=== PATIENT | male | born 1945 | race Caucasian/White ===

== ENCOUNTER 2019-02-09 15:07 | Inpatient (IN) | payer OTHER, MEDICARE ==
[2019-02-09 15:24] VITALS: BMI 25.8
[2019-02-09] MEDS ORDERED: ASPIRIN 81 MG CHEWABLE TABLETS PO ONE (15:31)
--- NOTE | 2019-02-09 15:32 | PDOC ---
History of Present Illness - General Chief Complaint: Chest Pain Stated Complaint: CHEST PAIN Time Seen by Provider: 02/09/19 15:29 - History of Present Illness Initial Comments: 02/09/19 15:43 The patient is a 73 year old male with a history of HTN, HLD who presents for evaluation of chest pain and SOB. The patient reports a 1 day history of SOB with substernal chest pain radiating to the back that has been persistent prompting his presentation to the ED for further evaluation. He denies prior similar symptoms in the past. He initially presented to his PCP office where an EKG was performed and the patient was referred to the ED for concerning EKG findings. He otherwise denies fevers, chills, nausea, vomiting, abdominal pain , or changes with urination or bowel movements. Past History - Past Medical History Allergies/Adverse Reactions: Allergies Allergy/AdvReac Type Severity Reaction Status Date / Time No Known Allergies Allergy Verified 02/09/19 15:25 Home Medications: Ambulatory Orders Aspirin [Ecotrin] 81 mg PO DAILY 02/09/16 Metoprolol Succinate [Toprol Xl -] 50 mg PO DAILY 02/09/16 Mirtazapine [Remeron -] 15 mg PO DAILY 02/09/16 Multivit-Min/FA/Lycopen/Lutein [Centrum Silver Tablet] 1 each PO DAILY 02/09/16 Quetiapine Fumarate [Seroquel -] 25 mg PO DAILY 02/09/16 Tamsulosin HCl [Flomax] 0.4 mg PO DAILY 02/09/16 Venlafaxine HCl [Effexor -] 75 mg PO DAILY 02/09/16 Amlodipine Besylate [Norvasc -] 2.5 mg PO DAILY 02/11/16 Quetiapine Fumarate [Seroquel] 100 tab PO HS 02/11/16 Anemia: No Asthma: No Cancer: No Cardiac Disorders: Yes (?murmer) CVA: No COPD: No CHF: No Dementia: No Diabetes: No GI Disorders: No Disorders: No HTN: Yes Hypercholesterolemia: No Liver Disease: No Seizures: No Thyroid Disease: No - Surgical History Abdominal Surgery: Yes (colon resection with reversal of colostomy) Appendectomy: No Cardiac Surgery: No Cholecystectomy: No Lung Surgery: No Orthopedic Surgery: No - Immunization History Immunization Up to Date: Yes - Psycho Social/Smoking Cessation Hx Smoking History: Former smoker Have you smoked in the past 12 months: No Information on smoking cessation initiated: No Hx Alcohol Use: Yes Drug/Substance Use Hx: No Substance Use Type: Alcohol Review of Systems - Review of Systems Comments:: 02/09/19 15:45 Constitutional: No fevers, chills, fatigue, malaise HEENT: No Rhinorrhea, nasal congestion, visual changes Cardiovascular: Chest pain. No syncope, palpitations, lightheadedness Respiratory: SOB. No Cough, Hemoptysis, Gastrointestinal: No Abdominal pain, Nausea, Vomiting, Constipation, Diarrhea, Melena Genitourinary: No Dysuria, Frequency, Urgency, Hesitancy, Hematuria, Flank pain Musculoskeletal: No Myalgia, arthralgia Skin: No rashes, itching, bruising, pallor Neurologic: No Headache, Dizziness, Numbness, Weakness, or Tingling Psychiatric: No Hallucinations. No SI or HI *Physical Exam - Vital Signs Last Vital Signs Temp Pulse Resp BP Pulse Ox 98.2 F 90 16 134/57 L 99 02/09/19 15:21 02/09/19 15:21 02/09/19 15:21 02/09/19 15:21 02/09/19 15:21 - Physical Exam 02/09/19 15:46 General Appearance: Nourished. No Apparent Distress HEENT: No Pharyngeal Erythema, Tonsillar Exudate, Tonsillar Erythema Neck: No Cervical Lymphadenopathy Respiratory/Chest: Lungs Clear, Normal Breath Sounds. No Crackles, Rales, Rhonchi, Wheezing Cardiovascular: Regular Rhythm, Regular Rate. No Murmur, Gallops, Rubs Gastrointestinal/Abdominal: Normal Bowel Sounds, Soft. No Guarding, Rebound, Tenderness Musculoskeletal: No CVA Tenderness Extremity: Normal Capillary Refill Integumentary: Normal Color, Dry, Warm Neurologic: Fully Oriented, Alert, Normal Mood/Affect, Normal Response, Heart Score/ECG Review #1 ECG reviewed & interpreted by me at: 15:46 02/09/19 15:46 HR 94 ID [address] elevations in leads aVR, V1, V2, V3 ST depressions in leads V4, V5, V6, I, II, aVL ED Treatment Course - LABORATORY CBC & Chemistry Diagram: 02/09/19 15:33 02/09/19 15:33 - RADIOLOGY Radiology Studies Ordered: Category Date Time Status CHEST X-RAY PORTABLE* [RAD] Stat Radiology 02/09/19 15:28 Ordered Medical Decision Making - Medical Decision Making 02/09/19 15:47 The patient is a 73 year old male with a history of HTN, HLD who presents for evaluation of chest pain and SOB. Given the patient's history, physical exam, and EKG we are concerned that the patient's symptoms may be due to a STEMI. We will obtain a cbc, cmp, coags, troponin, chest plain film to evaluate further. We will discuss the case with [facility] laboratory technologist regarding possible transfer. We will treat with aspirin, brilinta, heparin as well and continue to monitor and reassess while here in the ED. 02/09/19 16:27 We discussed the case with [facility] laboratory technologist who do not believe the patient requires emergent intervention at this time as the patient likely had an infarct 1 day ago and his current symptoms are due to NSTEMI. Troponin is elevated to 14. Chest plain film was initially unremarkable. The patient was evaluated by Dr. Ivey with cardiology. The patient was placed on a heparin drip with standing SL nitro. 02/09/19 19:34 The patient reported worsening symptoms with shortness of breath. He was observed to be diaphoretic on exam with bilaterally crackles concerning for CHF and flash pulmonary edema. We treated with nitro paste and lasix with improvement in the patient's symptoms. ICU team was consulted for possible ICU admission. Discharge - Discharge Information Problems reviewed: Yes Clinical Impression/Diagnosis: NSTEMI (non-ST elevated myocardial infarction) Chest pain Qualifiers: Chest pain type: unspecified Qualified Code(s): R07.9 - Chest pain, unspecified Condition: Guarded - Follow up/Referral - Patient Discharge Instructions - Post Discharge Activity
[2019-02-09] MEDS ORDERED: TICAGRELOR 90 MG TABLET PO ONE ×2 (15:35→15:44)
[2019-02-09] MEDS ORDERED: HEPARIN NA (PORCINE) 5,000 UNITS/ML 1ML VIAL IVPUSH ONE (15:35)
[2019-02-09] MEDS ORDERED: ASPIRIN COATED 81 MG TABLET.EC ONE (15:44)
[2019-02-09] MEDS ORDERED: HEPARIN NA (PORCINE) 5,000 UNITS/ML 1ML VIAL ONE (15:45)
[2019-02-09] MEDS: NITROGLYCERIN SUBLINGUAL 1/150 0.4 MG TAB SL PRN ×3 (15:59→21:37)
[2019-02-09] MEDS ORDERED: NITROGLYCERIN SUBLINGUAL 1/150 0.4 MG TAB ONE (16:01)
[2019-02-09 16:02] LABS: BASO % 0.8 % (0-2.0); EOS % 0.5 % (0-4.5); HEMATOCRIT 32.2 % (35.4-49); LYMPH % 10.7 % (8-40); MCH 32.5 pg (25.7-33.7); MCHC 34.1 g/dl (32.0-35.9); MEAN CELL VOLUME 95.5 fl (80-96); MEAN PLT VOLUME 10.5 fl (7.5-11.1); MONO % 7.8 % (3.8-10.2); NEUT % 80.2 % (42.8-82.8); PLATELET COUNT 263 K/MM3 (134-434); RBC 3.37 M/mm3 (4.00-5.60); WHITE BLOOD COUNT 10.7 K/mm3 (4.0-10.0)
[2019-02-09 16:19] LABS: ACTIVATED PTT 29.8 SECONDS (25.2-36.5)
[2019-02-09 16:43] LABS: ALBUMIN 3.2 g/dl (3.4-5.0); BILIRUBIN,TOTAL 0.4 mg/dL (0.2-1); BLOOD UREA NITROGEN 21.5 mg/dL (7-18); CALCIUM 8.6 mg/dL (8.5-10.1); CREATININE 1.2 mg/dL (0.55-1.3); POTASSIUM 4.8 mmol/L (3.5-5.1); TOT PROT 6.4 g/dl (6.4-8.2)
--- NOTE | 2019-02-09 16:45 | PDOC ---
Attending Attestation - Resident Resident Name: Anthony Jordan - ED Attending Attestation I have performed the following: I have examined & evaluated the patient, The case was reviewed & discussed with the resident, I agree w/resident's findings & plan, Exceptions are as noted - HPI HPI: 02/09/19 17:06 73 years old past medical history significant for hypertension hyperlipidemia presents to the ED with chest pain shortness of breath started approximately 2 AM last night substernal radiating to shoulder and back today presented to his PCP office were preceded an EKG was performed which demonstrated concerning EKG findings patient sent to the ED Upon arrival to the ED his pain was 2 out of 10 his EKG demonstrated Q waves in leads aVR, V1, V2 with ST elevations and reciprocal ST depressions laterally - Physicial Exam PE: 02/09/19 17:06 Vitals: Triage Vital signs reviewed General Appearance: No acute distress, well nourished well developed, Head: Atraumatic, Cardiac: Regular rate and rhythym, no murmurs, no rubs, no gallops, Lungs: Clear to auscultation bilateral, good air movement bilaterally, Abdomen: Soft, non distended, normal bowel sounds, non tender to palpation Extremities: Full range of motion to all extremities, no cyanosis, clubbing, or edema Skin: Warm and dry, no rashes or lesions, no rash, no petechiae Psych: Normal mood, normal affect - Critical Care Time Total Critical Care Time: 65 Critical Care Statement: The care of this patient involved high complexity decision making to prevent further life threatening deterioration of the patient 's condition and/or to evaluate & treat vital organ system(s) failure or risk of failure. - Medical Decision Making 02/09/19 17:06 Case discussed with [facility] to discuss possible interventional transfer EKG reviewed with patient does not meet criteria for STEMI transfer. Recommends nitroglycerin Reevaluation status post 2 nitroglycerin patient is completely chest pain-free Case discussed with patient's practice support specialist Dr. Rey Requested Dr. Rosario cardiology for consultation Dr. Taylor at bedside patient has been given full dose aspirin Brilinta IV heparin will place patient on heparin drip and admit to hospital for non-ST elevation HI. 02/09/19 18:45 Reevaluation bedside echo demonstrates mild heart failure with bilateral pleural effusions rediscussed with cardiology will treat with morphine IV Lasix and Nitropaste Reevaluation 630 patient chest pain-free patient to be admitted to the ICU for definitive management.
[2019-02-09] MEDS ORDERED: HEPARIN NA (PORCINE) 5,000 UNITS/ML 1ML VIAL IVPUSH PRN ×2 (16:56)
--- NOTE | 2019-02-09 16:59 | CON.CARD ---
Consult Consult Specialty:: Cardiology Referred by:: Miguelito Roa MD Reason for Consultation:: Chest pain - History of Present Illness Chief Complaint: Chest pain History of Present Illness: The patient is a 73 year old male with a history of HTN, HLD who presents for evaluation of chest pain and SOB starting yesterday 2 AM. The patient reports a 1 day history of SOB with substernal chest pressure/burning radiating to the back and bilateral shoulders that had persisted prompting his presentation to the ED for further evaluation. He denies prior similar symptoms in the past. He initially presented to his PCP office where an EKG was performed and the patient was referred to the ED for concerning EKG findings. He otherwise palpitations, near or true syncope, orthopnea, PND or LE edema. Troponins elevated 14.2, limited echo shows severe LV dsyfunction, lung US shows bilateral pleural effusions. sees Dr. Hamilton in office. - History Source History Provided By: Patient Limitations to Obtaining History: No Limitations - Alcohol/Substance Use Hx Alcohol Use: Yes - Smoking History Smoking history: Former smoker Have you smoked in the past 12 months: No Home Medications - Allergies Allergies/Adverse Reactions: Allergies Allergy/AdvReac Type Severity Reaction Status Date / Time No Known Allergies Allergy Verified 02/09/19 15:25 - Home Medications Home Medications: Ambulatory Orders Aspirin [Ecotrin] 81 mg PO DAILY 02/09/16 Metoprolol Succinate [Toprol Xl -] 50 mg PO DAILY 02/09/16 Mirtazapine [Remeron -] 15 mg PO DAILY 02/09/16 Multivit-Min/FA/Lycopen/Lutein [Centrum Silver Tablet] 1 each PO DAILY 02/09/16 Quetiapine Fumarate [Seroquel -] 25 mg PO DAILY 02/09/16 Tamsulosin HCl [Flomax] 0.4 mg PO DAILY 02/09/16 Venlafaxine HCl [Effexor -] 75 mg PO DAILY 02/09/16 Amlodipine Besylate [Norvasc -] 2.5 mg PO DAILY 02/11/16 Quetiapine Fumarate [Seroquel] 100 tab PO HS 02/11/16 Review of Systems - Review of Systems Cardiovascular: reports: Chest Pain, Shortness of Breath Vital Signs: Vital Signs Temperature 98.2 F 02/09/19 15:21 Pulse Rate 90 02/09/19 15:21 Respiratory Rate 16 02/09/19 15:21 Blood Pressure 134/57 L 02/09/19 15:21 O2 Sat by Pulse Oximetry (%) 99 02/09/19 15:21 Constitutional: Yes: No Distress, Calm Neck: Yes: Supple Respiratory: Yes: Regular, CTA Bilaterally Gastrointestinal: Yes: Normal Bowel Sounds, Soft Cardiovascular: Yes: Regular Rate and Rhythm JVD: No Carotid Bruit: No Heart Sounds: Yes: S1, S2 Murmur: Yes: Systolic Murmur, Grade 2 Edema: No - Other Data Labs, Other Data: CBC, BMP 02/09/19 15:33 02/09/19 15:33 Troponin, BNP 02/09/19 15:33 Troponin I 14.20 H* Troponin, BNP 02/09/19 15:33 Troponin I 14.20 H* NSR @ 94 LVH with repol abnl Imaging - Results Chest X-ray: Report Reviewed (Cardiomegaly with small effusion) Problem List - Problems (1) NSTEMI (non-ST elevated myocardial infarction) Code(s): I21.4 - NON-ST ELEVATION (NSTEMI) MYOCARDIAL INFARCTION (2) Hypertensive heart disease Code(s): I11.9 - HYPERTENSIVE HEART DISEASE WITHOUT HEART FAILURE Qualifiers: Heart failure presence: without heart failure Qualified Code(s): I11.9 - Hypertensive heart disease without heart failure (3) Acute systolic CHF (congestive heart failure) Code(s): I50.21 - ACUTE SYSTOLIC (CONGESTIVE) HEART FAILURE Assessment/Plan 1. CAD NSTEMI 2. Hypertensive heart disease 3. Hyperlipidemia 4. Acute systolic heart failure with pleural effusions P: 1. Cycle cardiac enzymes to document peak 2. Heparin, Toprol XL 50 qd, Norvasc 2.5 qd, Lipitor 80 qd, ASA 81 qd, Brilinta 90 bid, add MONIKA-I/ARB as hemodynamics tolerate 3. Echo to assess ventricular and valve fxn, TSH, lipid panel, Ha1c, NT-BNP 4. IV diuresis with monitor diuretic response, renal fxn and electrolytes 5. R&LHC +/- PCI once euvolemic 6. Thank you for consultative opportunity, f/u with Dr. Alton Hamilton upon d/c
[2019-02-09] MEDS ORDERED: HEPARIN INFUSION - 25,000 UNITS/500 ML INFUS.BAG IVPB ONE (17:08)
[2019-02-09] MEDS: HEPARIN - 25,000 UNIT in SODIUM CHLORIDE 495 ML IV SCH (17:16)
[2019-02-09] MEDS ORDERED: NITROGLYCERIN 2% OINTMENT - 1GM PACKET TD ONE ×2 (17:41→17:42)
[2019-02-09] MEDS ORDERED: FUROSEMIDE 40 MG/4 ML INJECTABLE VIAL IVPUSH ONE (17:41)
[2019-02-09] MEDS ORDERED: morphine CARPU-JECT 2 MG/1 ML DISP.SYRIN IVPUSH ONE (17:41)
[2019-02-09] MEDS ORDERED: MORPHINE SULFATE 2 MG/ML VIAL ONE (17:43)
[2019-02-09] MEDS ORDERED: FUROSEMIDE 40 MG/4 ML INJECTABLE VIAL ONE (17:43)
[2019-02-09 18:36] LABS: PROTHROMBIN TIME (PATIENT) 11.8 SEC (9.7-13.0)
--- NOTE | 2019-02-09 18:57 | CONSULT ---
Consultation: REQUESTING PROVIDER: CONSULT REQUEST: We have been asked to medically evaluate this patient for ICU admission due to NSTEMI and possible pulmonary edema. HISTORY OF PRESENT ILLNESS: 73 y/o/m with PMHx of HTN, HLD who presented to ED for chest pain and SOB. He has been having SOB and substernal chest pain that radiates to his upper back and right shoulder. He states he has had similar pain in the past when he had indigestion. Patient was referred to the ED by his PCP due to concerning EKG findings. He denies any sick contacts, N/V/D, abd pain, headache, dysuria. Patient found to have NSTEMI in ED with elevated trop. ED discussed with [facility] micro lab analyst who did not believe patient required emergent intervention as patient likely had an infarct 1 day ago. Patient was placed on a heparin drip with standing SL nitro. Patient reported worsening symptoms with SOB as per ED and ED staff concerned for flash pulmonary edema. Treated patient with nitro paste and lasix with improvement. Patient admitted to ICU for closer monitoring. REVIEW OF SYSTEMS: As per HPI PHYSICAL EXAMINATION Vital Signs - 24 hr 02/09/19 15:21 Temperature 98.2 F Pulse Rate 90 Respiratory 16 Rate Blood Pressure 134/57 L O2 Sat by Pulse 99 Oximetry (%) GENERAL: Awake, alert, and fully oriented, in no acute distress. HEAD: Normal with no signs of trauma. EYES: PERRL, EOMI, no scleral icterus EARS, NOSE, THROAT: dry mucous membranes NECK: trachea midline, supple LUNGS: Breath sounds equal, clear to auscultation bilaterally. No wheezes, and no crackles. No accessory muscle use. HEART: Tachycardic ABDOMEN: Soft, nontender, not distended, normoactive bowel sounds, no guarding EXTREMITIES: 2+ pulses, warm, well-perfused. No calf tenderness. trace edema NEUROLOGICAL: Normal speech. gait not observed PSYCHIATRIC: Cooperative. Good eye contact. Appropriate mood and affect. SKIN: Warm, dry Laboratory Results - last 24 hr 02/09/19 02/09/19 02/09/19 15:33 15:33 15:33 WBC 10.7 H RBC 3.37 L Hgb 11.0 L Hct 32.2 L MCV 95.5 MCH 32.5 MCHC 34.1 RDW 13.0 Plt Count 263 MPV 10.5 D Absolute Neuts (auto) 8.6 H Neutrophils % 80.2 Lymphocytes % 10.7 Monocytes % 7.8 Eosinophils % 0.5 Basophils % 0.8 Nucleated RBC % 0 PT with INR 11.80 INR 1.00 PTT (Actin FS) 29.8 Sodium 132 L Potassium 4.8 Chloride 100 Carbon Dioxide 26 Anion Gap 6 L BUN 21.5 H Creatinine 1.2 Est GFR (CKD-EPI)AfAm 68.15 Est GFR (CKD-EPI)NonAf 58.80 Random Glucose 104 Calcium 8.6 Total Bilirubin 0.4 AST 115 H ALT 27 Alkaline Phosphatase 114 Creatine Kinase 657 H Creatine Kinase Index 10.6 H CK-MB (CK-2) 69.8 H Troponin I 14.20 H* Total Protein 6.4 Albumin 3.2 L Active Medications Generic Name Dose Route Start Last Admin Trade Name Freq PRN Reason Stop Dose Admin Amlodipine Besylate 2.5 mg 02/10/19 10:00 Norvasc - PO DAILY [facility] Aspirin 81 mg 02/10/19 10:00 Asa - PO DAILY [facility] Atorvastatin Calcium 80 mg 02/09/19 22:00 Lipitor - PO HS [facility] Heparin Sodium (Porcine) 1,000 unit 02/09/19 16:56 Heparin - IVPUSH PRN PRN Heparin Heparin Sodium (Porcine) 5,000 unit 02/09/19 16:56 Heparin - IVPUSH PRN PRN Heparin Heparin Sodium (Porcine) 25, 500 mls @ 20 mls/hr 02/09/19 17:00 02/09/19 17: 16 000 unit/ Sodium Chloride IV 1,000 unit/hr TITR JOSE A 20 mls/hr Administration Protocol 1,000 UNIT/HR Metoprolol Succinate 50 mg 02/09/19 17:15 Toprol Xl - PO DAILY [facility] Nitroglycerin 0.4 mg 02/09/19 15:51 02/09/19 16:27 Nitrostat - SL 0.4 mg Q5M PRN Administration FOR CHEST PAIN Ticagrelor 90 mg 02/09/19 22:00 Brilinta - PO BID [facility] ASSESSMENT/PLAN: 73 y/o/m with PMHx of HTN, HLD who presented to ED for chest pain and SOB. Found to have an NSTEMI with elevated trop in ED. Per Cardio patient did not need urgent intervention. Admitted to ICU for NSTEMI and closer monitoring. NSTEMI Chest Pain Elevated Troponins HTN HLD - no emergent need for cath as per Cardio - Trend troponins - Heparin drip - Echo to evaluate cardiac function - Nitroglycerin and Morphine as needed - maintain MAP >65 - Hemodynamically stable - Patient comfortable on room air - Cardio recs appreciated - Continue home psych meds - Primary team considering transfer to tertiary center - CXR without acute pathology - Repeat EKG in AM #Disposition - ICU monitoring Visit type - Emergency Visit Emergency Visit: Yes ED Registration Date: 02/09/19 Care time: The patient presented to the Emergency Department on the above date and was hospitalized for further evaluation of their emergent condition. - New Patient This patient is new to me today: Yes Date on this admission: 02/10/19 - Critical Care Critical Care patient: Yes Total Critical Care Time (in minutes): 36 Critical Care Statement: The care of this patient involved high complexity decision making to prevent further life threatening deterioration of the patient 's condition and/or to evaluate & treat vital organ system(s) failure or risk of failure. ATTENDING PHYSICIAN STATEMENT I saw and evaluated the patient. I reviewed the resident's note and discussed the case with the resident. I agree with the resident's findings and plan as documented. SUBJECTIVE: OBJECTIVE: ASSESSMENT AND PLAN:
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
--- NOTE | 2019-02-09 19:14 | PN ---
Teaching Attending Note Name of Resident: Wes Christensen ATTENDING PHYSICIAN STATEMENT I saw and evaluated the patient. I reviewed the resident's note and discussed the case with the resident. I agree with the resident's findings and plan as documented. 73 year old M with history of CAD, HTN, HLD, depression, anxiety, BPH, presents to the ED with epigastric pain radiating to his substernal chest area. Patient endorses pain started 4-5 days ago with less intensity, associated with pressure and shortness of breath, which made him go to his PCP office where an EKG was done and showed ischemic changes and patient was sent to the ED for further workup. In the ED patient was found to have Q waves in leads aVR, V1 and V2 with SHILPI and reciprocal ST depressions in lateral leads. Bedside US done in ED which showed mild systolic HF with bilateral pleural effusions, patient started on ACS with ASA, Brilinta, statin, Heparin drip, BB, and nitroglycerin x2 then requiring nitro paste. Patient was also given Lasix 20mg IVP with good urine output. [facility] and was deemed not to meet criteria for transfer. Vital Signs - 24 hr 02/09/19 15:21 Temperature 98.2 F Pulse Rate 90 Respiratory 16 Rate Blood Pressure 134/57 L O2 Sat by Pulse 99 Oximetry (%) PE VS stable. General Appearance: NAD, well nourished well developed, Head: NC/AT, EOMI, neck supple, no JVD Cardiac: S1, S2+, diastolic murmur in LSB+, RRR Lungs: mild bibasilar crackles, no wheezing, no increased work of breathing Abdomen: Soft, large healed anterior abdominal scar, BS+, NT Extremities: Full range of motion to all extremities, trace LE edema b/l, no calf tenderness b/l Skin: Warm and dry, no rashes or lesions, no rash, no petechiae Psych: Normal mood, normal affect Laboratory Results - last 24 hr 02/09/19 02/09/19 02/09/19 15:33 15:33 15:33 WBC 10.7 H RBC 3.37 L Hgb 11.0 L Hct 32.2 L MCV 95.5 MCH 32.5 MCHC 34.1 RDW 13.0 Plt Count 263 MPV 10.5 D Absolute Neuts (auto) 8.6 H Neutrophils % 80.2 Lymphocytes % 10.7 Monocytes % 7.8 Eosinophils % 0.5 Basophils % 0.8 Nucleated RBC % 0 PT with INR 11.80 INR 1.00 PTT (Actin FS) 29.8 Sodium 132 L Potassium 4.8 Chloride 100 Carbon Dioxide 26 Anion Gap 6 L BUN 21.5 H Creatinine 1.2 Est GFR (CKD-EPI)AfAm 68.15 Est GFR (CKD-EPI)NonAf 58.80 Random Glucose 104 Calcium 8.6 Total Bilirubin 0.4 AST 115 H ALT 27 Alkaline Phosphatase 114 Creatine Kinase 657 H Creatine Kinase Index 10.6 H CK-MB (CK-2) 69.8 H Troponin I 14.20 H* Total Protein 6.4 Albumin 3.2 L Current Medications Generic Name Dose Route Start Last Admin Trade Name Freq PRN Reason Stop Dose Admin Amlodipine Besylate 2.5 mg 02/10/19 10:00 Norvasc - PO DAILY JOSE A Aspirin 81 mg 02/10/19 10:00 Asa - PO DAILY JOSE A Atorvastatin Calcium 80 mg 02/09/19 22:00 Lipitor - PO HS JOSE A Chlorhexidine Gluconate 1 applic 02/09/19 22:00 Hibiclens For Decolonization - TP HS JOSE A Heparin Sodium (Porcine) 1,000 unit 02/09/19 16:56 Heparin - IVPUSH PRN PRN Heparin Heparin Sodium (Porcine) 5,000 unit 02/09/19 16:56 Heparin - IVPUSH PRN PRN Heparin Heparin Sodium (Porcine) 25, 500 mls @ 20 mls/hr 02/09/19 17:00 02/09/19 17: 16 000 unit/ Sodium Chloride IV 1,000 unit/hr TITR JOSE A 20 mls/hr Administration Protocol 1,000 UNIT/HR Lisinopril 5 mg 02/10/19 10:00 Prinivil PO DAILY JOSE A Metoprolol Succinate 50 mg 02/09/19 17:15 Toprol Xl - PO DAILY JOSE A Mupirocin 1 applic 02/09/19 22:00 Bactroban Ointment (For Decolonization) - NS 02/14/19 21:59 BID JOSE A Nitroglycerin 0.4 mg 02/09/19 15:51 02/09/19 16:27 Nitrostat - SL 0.4 mg Q5M PRN Administration FOR CHEST PAIN Ticagrelor 90 mg 02/09/19 22:00 Brilinta - PO BID JOSE A A/P: 73 M h/o CAD, HTN, HLD, mood disorder presents with diagnosis of NSTEMI not meeting criteria for transfer for PCI. Patient accepted to the ICU for further management of NSTEMI. #NSTEMI continue ACS protocol, get TSH, A1c, BNP, lipid panel with next blood draw Obtain echocardiogram to assess LV function trend trops/CK with EKG every 4-6 hours or if status changes Follow closely with cardiology Lasix 20mg IVP PRN to achieve euvolemia Start Lisinopril 5mg and titrate up if hemodynamically stable Morphine and Nitroglycerin PRN for chest pain #HTN Start MONIKA, titrate off CCB and increase MONIKA dose as tolerated as this has most benefit for patient #HLD Continue statin #Mood disorder Continue home psych meds DVT ppx: Heparin drip ICU transfer
[2019-02-09] MEDS ORDERED: SODIUM CHLORIDE 1,000 ML IV SCH (23:00)
[2019-02-09] MEDS: TICAGRELOR 90 MG TABLET PO SCH (23:13)
[2019-02-09] MEDS: ATORVASTATIN CA 80 MG TABLET (FP) PO SCH (23:13)
[2019-02-10 02:04] LABS: INR 1.08 (0.83-1.09); PROTHROMBIN TIME (PATIENT) 12.7 SEC (9.7-13.0)
[2019-02-10 02:06] LABS: ACTIVATED PTT 71.9 SECONDS (25.2-36.5)
--- NOTE | 2019-02-10 02:54 | PN ---
Progress Note (short form) - Note Progress Note: As per covering night team: Spoke with Dr. Ivey regarding possible transfer to tertiary care facility given elevated troponins and concerning EKG changes. Discussed that given pt's symptoms started 1.5 days ago, is now currently without active chest pain and continues to remain hemodynamically stable, will defer immediate transfer to tertiary care facility. Will continue to trend trops, monitor symptoms, and hemodynamics closely.
[2019-02-10 06:38] LABS: HEMATOCRIT 31.6 % (35.4-49); MCH 32.7 pg (25.7-33.7); MCHC 34.8 g/dl (32.0-35.9); MEAN PLT VOLUME 10.5 fl (7.5-11.1); PLATELET COUNT 255 K/MM3 (134-434); RBC 3.36 M/mm3 (4.00-5.60); RDW 13.1 % (11.9-15.9); WHITE BLOOD COUNT 10.3 K/mm3 (4.0-10.0)
[2019-02-10 07:10] LABS: MAGNESIUM 2.2 mg/dL (1.8-2.4); N-TERMINAL BNP 23688.1 pg/ml (5-450); PHOSPHOROUS 4.5 mg/dL (2.5-4.9)
[2019-02-10 07:23] LABS: BLOOD UREA NITROGEN 21.5 mg/dL (7-18); CALCIUM 8.5 mg/dL (8.5-10.1); CREATININE 1.3 mg/dL (0.55-1.3); POTASSIUM 4.3 mmol/L (3.5-5.1)
--- NOTE | 2019-02-10 08:20 | PN ---
Progress Note (short form) - Note Progress Note: Abnormal Lab Results 02/09/19 02/09/19 02/09/19 05:49 15:33 15:33 WBC 10.7 H RBC 3.37 L Hgb 11.0 L Hct 32.2 L Absolute Neuts (auto) 8.6 H PTT (Actin FS) 58.6 H Sodium 132 L Anion Gap 6 L BUN 21.5 H AST 115 H Creatine Kinase 657 H Creatine Kinase Index 10.6 H CK-MB (CK-2) 69.8 H Troponin I 14.20 H* B-Natriuretic Peptide Albumin 3.2 L Cholesterol Total LDL Cholesterol HDL Cholesterol 02/09/19 02/10/19 02/10/19 20:42 00:20 05:49 WBC 10.3 H RBC 3.36 L Hgb 11.0 L Hct 31.6 L Absolute Neuts (auto) PTT (Actin FS) 71.9 H Sodium Anion Gap BUN AST Creatine Kinase Creatine Kinase Index CK-MB (CK-2) Troponin I 16.50 H* B-Natriuretic Peptide Albumin Cholesterol Total LDL Cholesterol HDL Cholesterol 02/10/19 02/10/19 05:49 05:49 WBC RBC Hgb Hct Absolute Neuts (auto) PTT (Actin FS) Sodium Anion Gap BUN 21.5 H AST Creatine Kinase 509 H Creatine Kinase Index 5.8 H CK-MB (CK-2) 30.0 H Troponin I 18.70 H* B-Natriuretic Peptide 05927.1 H Albumin Cholesterol 201 H Total LDL Cholesterol 118 H HDL Cholesterol 67 H Vital Signs Period Temp Pulse Resp BP Sys/Rciardo Pulse Ox Last 24 Hr 97.9 F-98.6 F 84-93 14-21 122-137/51-65 91-100 S1S2 RRR +M lungs cta, mildly decreased BS at bases abd soft NT +BS no edema aaox3 Active Medications Amlodipine Besylate (Norvasc -) 2.5 mg PO DAILY [facility] Aspirin (Asa -) 81 mg PO DAILY [facility] Atorvastatin Calcium (Lipitor -) 80 mg PO HS JOSE A Last Admin: 02/09/19 23:13 Dose: 80 mg Chlorhexidine Gluconate (Hibiclens For Decolonization -) 1 applic TP HS [facility] Furosemide (Lasix Injection -) 40 mg IVPUSH DAILY [facility] Heparin Sodium (Porcine) (Heparin -) 1,000 unit IVPUSH PRN PRN PRN Reason: Heparin Heparin Sodium (Porcine) (Heparin -) 5,000 unit IVPUSH PRN PRN PRN Reason: Heparin Heparin Sodium (Porcine) 25, (000 unit/ Sodium Chloride) 500 mls @ 20 mls/hr IV TITR JOSE A; Protocol Last Admin: 02/09/19 17:16 Dose: 1,000 unit/hr, 20 mls/hr Lisinopril (Prinivil) 5 mg PO DAILY [facility] Metoprolol Succinate (Toprol Xl -) 50 mg PO DAILY [facility] Last Admin: 02/09/19 20:36 Dose: Not Given Mupirocin (Bactroban Ointment (For Decolonization) -) 1 applic NS BID [facility] Stop: 02/14/19 21:59 Nitroglycerin (Nitrostat -) 0.4 mg SL Q5M PRN PRN Reason: FOR CHEST PAIN Last Admin: 02/09/19 21:37 Dose: 0.4 mg Ticagrelor (Brilinta -) 90 mg PO BID [facility] Last Admin: 02/09/19 23:13 Dose: 90 mg NSTEMI acute CHF with pleural effusion mod-severe AI HTN Depression-s/p 2 suicide attempts in 2015 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
[2019-02-10] MEDS ORDERED: PT OWN MED DRAWER 7, Y5N ONE ×2 (09:00→16:35)
[2019-02-10] MEDS: TICAGRELOR 90 MG TABLET PO SCH ×2 (09:20→21:20)
[2019-02-10] MEDS: ASPIRIN 81 MG CHEWABLE TABLETS PO SCH (09:20)
[2019-02-10] MEDS: FUROSEMIDE 40 MG/4 ML INJECTABLE VIAL IVPUSH SCH (09:21)
[2019-02-10] MEDS: amLODIPine BESYLATE 2.5 MG TABLET (FP) PO SCH (09:21)
[2019-02-10] MEDS: LISINOPRIL 5 MG TABLET (FP) PO SCH (09:21)
--- NOTE | 2019-02-10 11:33 | PN ---
Progress Note, Physician Chief Complaint: Pt A&Ox3; anxious, saying he did not sleep well last night. No chest pain now, "but sometimes I still have a little gas pain". History of Present Illness: The patient is a 73 year old white male with a history of HTN, HLD, sedentary lifestyle, former cigarette smoker (quit 35 yrs ago), who presents for evaluation of chest pain and SOB. The patient reports a 1 day history of SOB with substernal chest pain radiating to the back that has been persistent prompting his presentation to the ED for further evaluation. He denies prior similar symptoms in the past. He initially presented to his PCP office where an EKG was performed and the patient was referred to the ED for concerning EKG findings. He otherwise denies fevers, chills, nausea, vomiting, abdominal pain , or changes with urination or bowel movements. - Current Medication List Current Medications: Active Medications Amlodipine Besylate (Norvasc -) 2.5 mg PO DAILY [facility] Last Admin: 02/10/19 09:21 Dose: 2.5 mg Aspirin (Asa -) 81 mg PO DAILY [facility] Last Admin: 02/10/19 09:20 Dose: 81 mg Atorvastatin Calcium (Lipitor -) 80 mg PO HS JOSE A Last Admin: 02/09/19 23:13 Dose: 80 mg Chlorhexidine Gluconate (Hibiclens For Decolonization -) 1 applic TP HS JOSE A Furosemide (Lasix Injection -) 40 mg IVPUSH DAILY [facility] Last Admin: 02/10/19 09:21 Dose: 40 mg Heparin Sodium (Porcine) (Heparin -) 1,000 unit IVPUSH PRN PRN PRN Reason: Heparin Heparin Sodium (Porcine) (Heparin -) 5,000 unit IVPUSH PRN PRN PRN Reason: Heparin Heparin Sodium (Porcine) 25, (000 unit/ Sodium Chloride) 500 mls @ 20 mls/hr IV TITR JOSE A; Protocol Last Admin: 02/09/19 17:16 Dose: 1,000 unit/hr, 20 mls/hr Lisinopril (Prinivil) 5 mg PO DAILY [facility] Last Admin: 02/10/19 09:21 Dose: 5 mg Metoprolol Succinate (Toprol Xl -) 50 mg PO DAILY [facility] Last Admin: 02/10/19 09:21 Dose: 50 mg Mirtazapine (Remeron -) 7.5 mg PO HS JOSE A Mupirocin (Bactroban Ointment (For Decolonization) -) 1 applic NS BID [facility] Stop: 02/15/19 10:59 Nitroglycerin (Nitrostat -) 0.4 mg SL Q5M PRN PRN Reason: FOR CHEST PAIN Last Admin: 02/09/19 21:37 Dose: 0.4 mg Ticagrelor (Brilinta -) 90 mg PO BID [facility] Last Admin: 02/10/19 09:20 Dose: 90 mg - Objective Vital Signs: Vital Signs Temperature 98.6 F 02/10/19 06:00 Pulse Rate 87 02/10/19 06:00 Respiratory Rate 20 02/10/19 06:00 Blood Pressure 122/52 L 02/10/19 06:00 O2 Sat by Pulse Oximetry (%) 100 02/09/19 16:25 Constitutional: Yes: Anxious Eyes: Yes: WNL HENT: Yes: WNL Neck: Yes: WNL Cardiovascular: Yes: S1, S2, S4 Respiratory: Yes: WNL Gastrointestinal: Yes: Soft ...Rectal Exam: Yes: Deferred Genitourinary: No: Anuria Breast(s): Yes: WNL Musculoskeletal: Yes: WNL Extremities: Yes: WNL Edema: No Peripheral Pulses WNL: Yes Integumentary: Yes: WNL Neurological: Yes: WNL ...Motor Strength: WNL Psychiatric: Yes: Alert, Oriented, Other (depression) Labs: CBC, BMP 02/10/19 05:49 02/10/19 05:49 INR, PTT INR 1.08 (0.83-1.09) 02/10/19 00:20 Abnormal Lab Results 02/10/19 02/11/19 02/11/19 14:55 05:22 05:22 WBC 11.7 H RBC 3.63 L Hgb 11.6 L Hct 34.6 L BUN 29.3 H Creatinine 1.4 H Calcium 8.4 L AST 78 H Troponin I 15.50 H* Total Protein 6.3 L Albumin 2.9 L - ....Imaging Chest X-ray: Image Reviewed Other: Image Reviewed (Telemetry: NSR; occasional APCs, PVCs) Problem List - Problems (1) Hyperlipidemia Assessment/Plan: LDL cholesterol 118 mg/dL (may be falsely low with acute NV). Now on atorvastatin 80 mg daily. Problems reviewed: Yes Code(s): E78.5 - HYPERLIPIDEMIA, UNSPECIFIED (2) Acute systolic CHF (congestive heart failure) Assessment/Plan: by hx; f/u ECHO. Code(s): I50.21 - ACUTE SYSTOLIC (CONGESTIVE) HEART FAILURE (3) Hypertensive heart disease Assessment/Plan: On metoprolol, amlodipine, lisinopril, furosemide. Code(s): I11.9 - HYPERTENSIVE HEART DISEASE WITHOUT HEART FAILURE Qualifiers: Heart failure presence: without heart failure Qualified Code(s): I11.9 - Hypertensive heart disease without heart failure (4) NSTEMI (non-ST elevated myocardial infarction) Assessment/Plan: On ASA and Brilinta; IV heparin. On atorvastatin 80 mg daily. On metoprolol ER, lisinopril, amlodipine, and furosemide.. Plan for transfer to [facility] 02/12/19 for coronary angiogram. Code(s): I21.4 - NON-ST ELEVATION (NSTEMI) MYOCARDIAL INFARCTION (5) Anemia Code(s): D64.9 - ANEMIA, UNSPECIFIED (6) Dry eyes Assessment/Plan: Says he is on drops at home; ? s/p retinal detachment. Code(s): H04.123 - DRY EYE SYNDROME OF BILATERAL LACRIMAL GLANDS (7) Insomnia Code(s): G47.00 - INSOMNIA, UNSPECIFIED (8) Depression Assessment/Plan: Pt with hx of severe depression, suicidal attempts. No suicidal ideation presently; slept better last night after medications ( Remeron and Seroquel) reinstituted. He says he has good outside psychological support. Code(s): F32.9 - MAJOR DEPRESSIVE DISORDER, SINGLE EPISODE, UNSPECIFIED Assessment/Plan CCU time spent: 45 minutes.
[2019-02-10] MEDS ORDERED: ARTIFICIAL TEARS (POLYVINYL ALCOHOL) OPTH DROPS OU PRN (12:24)
[2019-02-10] MEDS: MUPIROCIN 2% TOPICAL OINTMENT FOR DECOLONIZATION NS SCH ×2 (12:34→21:15)
--- NOTE | 2019-02-10 13:57 | CONSULT ---
Consult Consult Specialty:: PULM/CCM Referred by:: Dr. David Hilliard Reason for Consultation:: NSTEMI - History of Present Illness Chief Complaint: CP History of Present Illness: Mr. Ann is a 73 y/o man w/ HTN, HLD, sedentary lifestyle, former cigarette smoker (quit 35 yrs ago). The pt presents to his PMD on 02/09 c/o CP/ SOB. PMD sent pt to ED for: "concerning EKG findings". In ED, pt reports a 1 day history of persistent SOB w/ SSCP radiating to the back. The pt denies any prior similar symptoms in the past. The pt denies any fevers, chills, nausea, vomiting, abdominal pain, or changes w/ urination or bowel movements. W/u reveals MA in progress w/ ST elevations in leads aVR, V1, V2, V3 & ST depressions in leads V4, V5, V6, I, II, aVL i/s/o Troponin leak -> 14.2 --> 16.5 --> 18.7, c/b worsening SOB, diaphoresis w/ development of B/l crackles c/ w flash pulmonary edema which was treated w/ NTP and lasix. Pt admitted to ICU O /N for MA in progress. - History Source History Provided By: Patient, Medical Record Limitations to Obtaining History: No Limitations - Past Medical History ENT: Yes: Other (bilateral retinal detachments in past) - Alcohol/Substance Use Hx Alcohol Use: No - Smoking History Smoking history: Former smoker Have you smoked in the past 12 months: No - Social History History of Recent Travel: No Home Medications - Allergies Allergies/Adverse Reactions: Allergies Allergy/AdvReac Type Severity Reaction Status Date / Time No Known Allergies Allergy Verified 02/09/19 15:25 - Home Medications Home Medications: Ambulatory Orders Aspirin [Ecotrin] 81 mg PO DAILY 02/09/16 Mirtazapine [Remeron -] 7.5 mg PO HS 02/09/16 Multivit-Min/FA/Lycopen/Lutein [Centrum Silver Tablet] 1 each PO DAILY 02/09/16 Quetiapine Fumarate [Seroquel -] 25 mg PO HS 02/09/16 Tamsulosin HCl [Flomax] 0.4 mg PO DAILY 02/09/16 Venlafaxine HCl [Effexor -] 75 mg PO DAILY 02/09/16 Amlodipine Besylate 10 mg PO DAILY 02/09/19 Lisinopril 20 mg PO DAILY 02/09/19 Metoprolol Succinate 25 mg PO DAILY 02/09/19 Family Medical History Family History: Unremarkable Review of Systems - Review of Systems Constitutional: reports: No Symptoms Eyes: reports: No Symptoms HENT: reports: No Symptoms Neck: reports: No Symptoms Cardiovascular: reports: Chest Pain, Shortness of Breath Respiratory: reports: Exercise Intolerance, SOB, SOB on Exertion Gastrointestinal: reports: No Symptoms Genitourinary: reports: No Symptoms Breasts: reports: No Symptoms Reported Musculoskeletal: reports: No Symptoms Integumentary: reports: No Symptoms Neurological: reports: No Symptoms Endocrine: reports: No Symptoms Hematology/Lymphatic: reports: No Symptoms Psychiatric: reports: No Symptoms Pain Intensity: 8 Physical Exam Vital Signs: Vital Signs Temperature 98.6 F 02/10/19 06:00 Pulse Rate 87 02/10/19 06:00 Respiratory Rate 20 02/10/19 06:00 Blood Pressure 122/52 L 02/10/19 06:00 O2 Sat by Pulse Oximetry (%) 100 02/09/19 16:25 Intake & Output 02/07/19 02/08/19 02/09/19 02/10/19 23:59 23:59 23:59 23:59 Intake Total 300 Output Total 1250 Balance -1250 300 Weight 77.111 kg Constitutional: Yes: Well Nourished, No Distress, Calm Eyes: Yes: WNL, Conjunctiva Clear, EOM Intact HENT: Yes: WNL, Atraumatic, Normocephalic Neck: Yes: WNL, Supple, Trachea Midline Cardiovascular: Yes: WNL, Regular Rate and Rhythm Respiratory: Yes: WNL, Regular, CTA Bilaterally Gastrointestinal: Yes: WNL, Normal Bowel Sounds, Soft ...Rectal Exam: Yes: Deferred Renal/: Yes: WNL Breast(s): Yes: WNL Musculoskeletal: Yes: WNL Extremities: Yes: WNL Edema: No Peripheral Pulses WNL: Yes Neurological: Yes: WNL, Alert, Oriented ...Motor Strength: WNL Psychiatric: Yes: WNL, Alert, Oriented Labs: CBC, BMP 02/10/19 05:49 02/10/19 05:49 Troponin, BNP 02/09/19 02/09/19 02/10/19 15:33 20:42 05:49 Troponin I 14.20 H* 16.50 H* 18.70 H* B-Natriuretic Peptide 02/10/19 05:49 Troponin I B-Natriuretic Peptide 17450.1 H INR, PTT INR 1.08 (0.83-1.09) 02/10/19 00:20 Imaging - Results Chest X-ray: Image Reviewed (02/10: Clear (My Read).) EKG: Image Reviewed (EVOLVING MA IN PROGRESS02/09: RSR @ 94 w/o ectopy , LVH, ST elevations in leads aVR, V1, V2, V3 & ST depressions in leads V4, V5, V6, I, II, & aVL, qu'ed out in V2 c/f Septal Wall Infarction in progress, QTc = 457ms--> Repeat EKG 02/10: RSR @ 97 w/o ectopy, L-axis deviation NOW NEW q- waves in III, aVF, V1, V2, V3, V4 NEW L BBB QTc = 530ms (My Read).) Problem List - Problems (1) Chest pain Code(s): R07.9 - CHEST PAIN, UNSPECIFIED Qualifiers: Chest pain type: unspecified Qualified Code(s): R07.9 - Chest pain, unspecified (2) Hyperlipidemia Code(s): E78.5 - HYPERLIPIDEMIA, UNSPECIFIED (3) Hypertensive heart disease Code(s): I11.9 - HYPERTENSIVE HEART DISEASE WITHOUT HEART FAILURE Qualifiers: Heart failure presence: without heart failure Qualified Code(s): I11.9 - Hypertensive heart disease without heart failure (4) NSTEMI (non-ST elevated myocardial infarction) Code(s): I21.4 - NON-ST ELEVATION (NSTEMI) MYOCARDIAL INFARCTION Assessment/Plan ASSESS: -MA -HTN -CHF -Mod-severe AI PLAN: -NPO -Standing FiO2 @ 3LPM -NTP -MSO4 for any break through -ASA -Brilinta -Hepatin gtt -BB -Statin -Trend Trop -Cont home Norvasc -Cont home Lisinopril -Diurese -Decolonize w/ Bactroban -Trend EKG -STAT Transfer to Cardiac Cath -CARDS Consult -SCDs -GI ppx [facility] ICU PULM/CCM [id number] Medical Decision Making - Critical Care Time Total Critical Care Time (minutes): 38 Critical Care Statement: The care of this patient involved high complexity decision making to prevent further life threatening deterioration of the patient 's condition and/or to evaluate & treat vital organ system(s) failure or risk of failure.
[2019-02-10] MEDS: HEPARIN - 25,000 UNIT in SODIUM CHLORIDE 495 ML IV SCH (16:48)
[2019-02-10] MEDS: MIRTAZAPINE 15 MG TABLET (FP) PO SCH (21:16)
[2019-02-10] MEDS: ATORVASTATIN CA 80 MG TABLET (FP) PO SCH (21:16)
[2019-02-10] MEDS: CHLORHEXIDINE GLUCONATE 4% CLEANSER FOR DECOLONIZATION TP SCH (21:16)
[2019-02-10] MEDS: QUEtiapine FUMARATE 25 MG TABLET (FP) PO SCH (21:16)
[2019-02-11 06:38] LABS: HEMATOCRIT 34.6 % (35.4-49); HEMOGLOBIN 11.6 GM/dL (11.7-16.9); MCH 32.1 pg (25.7-33.7); MCHC 33.7 g/dl (32.0-35.9); MEAN CELL VOLUME 95.3 fl (80-96); MEAN PLT VOLUME 10.8 fl (7.5-11.1); PLATELET COUNT 262 K/MM3 (134-434); RBC 3.63 M/mm3 (4.00-5.60); RDW 12.9 % (11.9-15.9); WHITE BLOOD COUNT 11.7 K/mm3 (4.0-10.0)
[2019-02-11 06:59] LABS: ALBUMIN 2.9 g/dl (3.4-5.0); BILIRUBIN,TOTAL 0.6 mg/dL (0.2-1); BLOOD UREA NITROGEN 29.3 mg/dL (7-18); CALCIUM 8.4 mg/dL (8.5-10.1); CREATININE 1.4 mg/dL (0.55-1.3); TOT PROT 6.3 g/dl (6.4-8.2)
[2019-02-11] MEDS ORDERED: PT OWN MED DRAWER 7, Y5N ONE ×2 (09:22→17:47)
[2019-02-11] MEDS: amLODIPine BESYLATE 2.5 MG TABLET (FP) PO SCH (09:29)
[2019-02-11] MEDS: LISINOPRIL 5 MG TABLET (FP) PO SCH (09:30)
[2019-02-11] MEDS: TICAGRELOR 90 MG TABLET PO SCH ×2 (09:30→21:00)
[2019-02-11] MEDS: ASPIRIN 81 MG CHEWABLE TABLETS PO SCH (09:30)
[2019-02-11] MEDS: MUPIROCIN 2% TOPICAL OINTMENT FOR DECOLONIZATION NS SCH ×2 (09:30→21:01)
[2019-02-11] MEDS: FUROSEMIDE 40 MG/4 ML INJECTABLE VIAL IVPUSH SCH (09:30)
--- NOTE | 2019-02-11 10:14 | EKG ---
Test Reason : Blood Pressure : / mmHG Vent. Rate : 094 BPM Atrial Rate : 094 BPM P-R Int : 160 ms QRS Dur : 108 ms QT Int : 366 ms P-R-T Axes : 039 -20 -89 degrees QTc Int : 457 ms NORMAL SINUS RHYTHM WITH SINUS ARRHYTHMIA LEFT VENTRICULAR HYPERTROPHY WITH REPOLARIZATION ABNORMALITY CANNOT RULE OUT SEPTAL INFARCT , AGE UNDETERMINED ABNORMAL ECG WHEN COMPARED WITH ECG OF 26-JUL-2000 06:46, SIGNIFICANT CHANGES HAVE OCCURRED Confirmed by ESME PARNELL, KARRIE ([id number]) on 02/11/2019 10:13:57 AM Referred By: Confirmed By:KARRIE VICTORIA MD
--- NOTE | 2019-02-11 10:14 | PN ---
Progress Note (short form) - Note Progress Note: Seen and examined in the ICU BP stable off NGT drip Denies: CP/SOB/LALA/PND troponin down trending, AM level pending Current Medications Amlodipine Besylate (Norvasc -) 2.5 mg PO DAILY [facility] Last Admin: 02/11/19 09:29 Dose: 2.5 mg Artificial Tears (Artificial Tears) 1 drop OU QID PRN PRN Reason: DRY EYES Last Admin: 02/11/19 09:31 Dose: 1 drop Aspirin (Asa -) 81 mg PO DAILY [facility] Last Admin: 02/11/19 09:30 Dose: 81 mg Atorvastatin Calcium (Lipitor -) 80 mg PO HS [facility] Last Admin: 02/10/19 21:16 Dose: 80 mg Chlorhexidine Gluconate (Hibiclens For Decolonization -) 1 applic TP HS [facility] Last Admin: 02/10/19 21:16 Dose: Not Given Furosemide (Lasix Injection -) 40 mg IVPUSH DAILY [facility] Last Admin: 02/11/19 09:30 Dose: 40 mg Heparin Sodium (Porcine) (Heparin -) 1,000 unit IVPUSH PRN PRN PRN Reason: Heparin Heparin Sodium (Porcine) (Heparin -) 5,000 unit IVPUSH PRN PRN PRN Reason: Heparin Heparin Sodium (Porcine) 25, (000 unit/ Sodium Chloride) 500 mls @ 20 mls/hr IV TITR [facility]; Protocol Last Admin: 02/10/19 16:48 Dose: 1,000 unit/hr, 20 mls/hr Lisinopril (Prinivil) 5 mg PO DAILY [facility] Last Admin: 02/11/19 09:30 Dose: 5 mg Metoprolol Succinate (Toprol Xl -) 50 mg PO ONCE ONE Stop: 02/11/19 10:08 Metoprolol Succinate (Toprol Xl -) 100 mg PO DAILY [facility] Mirtazapine (Remeron -) 7.5 mg PO HS [facility] Last Admin: 02/10/19 21:16 Dose: 7.5 mg Mupirocin (Bactroban Ointment (For Decolonization) -) 1 applic NS BID [facility] Stop: 02/15/19 10:59 Last Admin: 02/11/19 09:30 Dose: 1 applic Nitroglycerin (Nitrostat -) 0.4 mg SL Q5M PRN PRN Reason: FOR CHEST PAIN Last Admin: 02/09/19 21:37 Dose: 0.4 mg Quetiapine Fumarate (Seroquel -) 25 mg PO HS [facility] Last Admin: 02/10/19 21:16 Dose: 25 mg Ticagrelor (Brilinta -) 90 mg PO BID [facility] Last Admin: 02/11/19 09:30 Dose: 90 mg Assessment/Plan ASSESS: -MS -HTN -CHF -Mod-severe AI PLAN: -NPO -Standing FiO2 @ 3LPM -NTP -MSO4 for any break through -ASA -Brilinta -Hepatin gtt -BB -Statin -Trend Trop -Cont home Norvasc -Cont home Lisinopril -Diurese -Decolonize w/ Bactroban -Trend EKG -STAT Transfer to Cardiac Cath -CARDS Consult -SCDs -GI ppx Vital Signs Period Temp Pulse Resp BP Sys/Ricardo Pulse Ox Last 24 Hr 97 F-97.6 F 73-92 16-24 126-145/47-78 Intake & Output 02/08/19 02/09/19 02/10/19 02/11/19 23:59 23:59 23:59 23:59 Intake Total 640 760 Output Total 1250 800 Balance -1250 -160 760 Weight 77.111 kg Exam: awake, alert and cooperative HEENT: PERRL, old trach site, no JVD noted CV: RRR Pulm: CTA Abd: SNTND Ext: WWP, no edema Neuro: intact CBCD WBC 11.7 K/mm3 (4.0-10.0) H 02/11/19 05:22 RBC 3.63 M/mm3 (4.00-5.60) L 02/11/19 05:22 Hgb 11.6 GM/dL (11.7-16.9) L 02/11/19 05:22 Hct 34.6 % (35.4-49) L 02/11/19 05:22 MCV 95.3 fl (80-96) 02/11/19 05:22 MCHC 33.7 g/dl (32.0-35.9) 02/11/19 05:22 RDW 12.9 % (11.9-15.9) 02/11/19 05:22 Plt Count 262 K/MM3 (134-434) 02/11/19 05:22 MPV 10.8 fl (7.5-11.1) 02/11/19 05:22 CMP Sodium 138 mmol/L (136-145) 02/11/19 05:22 Potassium 4.0 mmol/L (3.5-5.1) 02/11/19 05:22 Chloride 103 mmol/L (98-107) 02/11/19 05:22 Carbon Dioxide 25 mmol/L (21-32) 02/11/19 05:22 Anion Gap 10 MMOL/L (8-16) 02/11/19 05:22 BUN 29.3 mg/dL (7-18) H 02/11/19 05:22 Creatinine 1.4 mg/dL (0.55-1.3) H 02/11/19 05:22 Random Glucose 89 mg/dL (74-106) 02/11/19 05:22 Calcium 8.4 mg/dL (8.5-10.1) L 02/11/19 05:22 Total Bilirubin 0.6 mg/dL (0.2-1) 02/11/19 05:22 AST 78 U/L (15-37) H 02/11/19 05:22 ALT 27 U/L (13-61) 02/11/19 05:22 Alkaline Phosphatase 110 U/L (45-117) 02/11/19 05:22 Total Protein 6.3 g/dl (6.4-8.2) L 02/11/19 05:22 Albumin 2.9 g/dl (3.4-5.0) L 02/11/19 05:22 CARDIAC ENZYMES Creatine Kinase 509 U/L (26-308) H 02/10/19 05:49 Troponin I 15.50 ng/ml (0.00-0.05) H* 02/10/19 14:55 EKG: pending ASSESS: -MS -HTN -CHF -Mod-severe AI PLAN: -Cardiac diet -Standing FiO2 @ 3LPM -MSO4 for any break through pain -ASA -Brilinta -Hepatin gtt -BB, increase dose per cardiology -Statin -Trend Trop -Cont home Norvasc -Cont home Lisinopril -Diurese -Decolonize w/ Bactroban -Trend EKG daily and prn -Transfer to Cardiac Cath Tuesday for cath -CARDS Consulted -SCDs -GI ppx -cont ICU care until transfer tomorrow AM Raciel [facility] Pulm/CCM CCT: 35m
--- NOTE | 2019-02-11 10:14 | EKG ---
Test Reason : Blood Pressure : / mmHG Vent. Rate : 097 BPM Atrial Rate : 097 BPM P-R Int : 148 ms QRS Dur : 158 ms QT Int : 418 ms P-R-T Axes : 037 -38 094 degrees QTc Int : 530 ms NORMAL SINUS RHYTHM POSSIBLE LEFT ATRIAL ENLARGEMENT LEFT AXIS DEVIATION LEFT BUNDLE BRANCH BLOCK ABNORMAL ECG WHEN COMPARED WITH ECG OF 09-FEB-2019 15:14, LEFT BUNDLE BRANCH BLOCK IS NOW PRESENT MINIMAL CRITERIA FOR SEPTAL INFARCT ARE NO LONGER PRESENT Confirmed by KARRIE VICTORIA MD ([id number]) on 02/11/2019 10:14:19 AM Referred By: Alo DEWEY Confirmed By:KARRIE VICTORIA MD
--- NOTE | 2019-02-11 16:36 | PN ---
Progress Note, Physician Chief Complaint: No new complaints, no chest pain. - Current Medication List Current Medications: Active Medications Amlodipine Besylate (Norvasc -) 2.5 mg PO DAILY [facility] Last Admin: 02/11/19 09:29 Dose: 2.5 mg Artificial Tears (Artificial Tears) 1 drop OU QID PRN PRN Reason: DRY EYES Last Admin: 02/11/19 09:31 Dose: 1 drop Aspirin (Asa -) 81 mg PO DAILY [facility] Last Admin: 02/11/19 09:30 Dose: 81 mg Atorvastatin Calcium (Lipitor -) 80 mg PO HS [facility] Last Admin: 02/10/19 21:16 Dose: 80 mg Chlorhexidine Gluconate (Hibiclens For Decolonization -) 1 applic TP HS [facility] Last Admin: 02/10/19 21:16 Dose: Not Given Furosemide (Lasix Injection -) 40 mg IVPUSH DAILY [facility] Last Admin: 02/11/19 09:30 Dose: 40 mg Heparin Sodium (Porcine) (Heparin -) 1,000 unit IVPUSH PRN PRN PRN Reason: Heparin Heparin Sodium (Porcine) (Heparin -) 5,000 unit IVPUSH PRN PRN PRN Reason: Heparin Heparin Sodium (Porcine) 25, (000 unit/ Sodium Chloride) 500 mls @ 20 mls/hr IV TITR [facility]; Protocol Last Admin: 02/10/19 16:48 Dose: 1,000 unit/hr, 20 mls/hr Lisinopril (Prinivil) 5 mg PO DAILY [facility] Last Admin: 02/11/19 09:30 Dose: 5 mg Metoprolol Succinate (Toprol Xl -) 100 mg PO DAILY [facility] Mirtazapine (Remeron -) 7.5 mg PO HS [facility] Last Admin: 02/10/19 21:16 Dose: 7.5 mg Mupirocin (Bactroban Ointment (For Decolonization) -) 1 applic NS BID [facility] Stop: 02/15/19 10:59 Last Admin: 02/11/19 09:30 Dose: 1 applic Nitroglycerin (Nitrostat -) 0.4 mg SL Q5M PRN PRN Reason: FOR CHEST PAIN Last Admin: 02/09/19 21:37 Dose: 0.4 mg Quetiapine Fumarate (Seroquel -) 25 mg PO HS [facility] Last Admin: 02/10/19 21:16 Dose: 25 mg Ticagrelor (Brilinta -) 90 mg PO BID [facility] Last Admin: 02/11/19 09:30 Dose: 90 mg - Objective Vital Signs: Vital Signs Temperature 97.4 F L 02/11/19 10:00 Pulse Rate 90 02/11/19 12:00 Respiratory Rate 20 02/11/19 12:00 Blood Pressure 130/55 L 02/11/19 12:00 O2 Sat by Pulse Oximetry (%) 100 02/09/19 16:25 Constitutional: Yes: No Distress Neck: Yes: Supple Cardiovascular: Yes: Regular Rate and Rhythm, S1, S2 Respiratory: Yes: CTA Bilaterally Gastrointestinal: Yes: Normal Bowel Sounds, Soft Neurological: Yes: Alert, Oriented. No: Loss of Sensation ...Motor Strength: WNL Labs: CBC, BMP 02/11/19 05:22 02/11/19 05:22 INR, PTT INR 1.08 (0.83-1.09) 02/10/19 00:20 Problem List - Problems (1) Chest pain Assessment/Plan: Cont current meds, troponins improving, plan transfer to [facility] in AM , for cath. Code(s): R07.9 - CHEST PAIN, UNSPECIFIED Qualifiers: Chest pain type: unspecified Qualified Code(s): R07.9 - Chest pain, unspecified (2) Acute systolic CHF (congestive heart failure) Assessment/Plan: Compensated. Code(s): I50.21 - ACUTE SYSTOLIC (CONGESTIVE) HEART FAILURE
[2019-02-11] MEDS: MIRTAZAPINE 15 MG TABLET (FP) PO SCH (21:00)
[2019-02-11] MEDS: HEPARIN - 25,000 UNIT in SODIUM CHLORIDE 495 ML IV SCH (21:00)
[2019-02-11] MEDS: ATORVASTATIN CA 80 MG TABLET (FP) PO SCH (21:00)
[2019-02-11] MEDS: QUEtiapine FUMARATE 25 MG TABLET (FP) PO SCH (21:00)
[2019-02-11] MEDS: CHLORHEXIDINE GLUCONATE 4% CLEANSER FOR DECOLONIZATION TP SCH (21:02)
[2019-02-12 02:16] VITALS: TEMP 98.1
--- NOTE | 2019-02-12 03:38 | PN ---
Progress Note, Physician Chief Complaint: Pt A&Ox3; slept better. No chest pain or dyspnea; no palpitations. History of Present Illness: The patient is a 73 year old white male with a history of HTN, HLD, sedentary lifestyle, former cigarette smoker (quit 35 yrs ago), who presents for evaluation of chest pain and SOB. The patient reports a 1 day history of SOB with substernal chest pain radiating to the back that has been persistent prompting his presentation to the ED for further evaluation. He denies prior similar symptoms in the past. He initially presented to his PCP office where an EKG was performed and the patient was referred to the ED for concerning EKG findings. He otherwise denies fevers, chills, nausea, vomiting, abdominal pain , or changes with urination or bowel movements. - Current Medication List Current Medications: Active Medications Amlodipine Besylate (Norvasc -) 2.5 mg PO DAILY [facility] Last Admin: 02/11/19 09:29 Dose: 2.5 mg Artificial Tears (Artificial Tears) 1 drop OU QID PRN PRN Reason: DRY EYES Last Admin: 02/11/19 09:31 Dose: 1 drop Aspirin (Asa -) 81 mg PO DAILY [facility] Last Admin: 02/11/19 09:30 Dose: 81 mg Atorvastatin Calcium (Lipitor -) 80 mg PO HS [facility] Last Admin: 02/11/19 21:00 Dose: 80 mg Chlorhexidine Gluconate (Hibiclens For Decolonization -) 1 applic TP HS [facility] Last Admin: 02/11/19 21:02 Dose: Not Given Furosemide (Lasix Injection -) 40 mg IVPUSH DAILY [facility] Last Admin: 02/11/19 09:30 Dose: 40 mg Heparin Sodium (Porcine) (Heparin -) 1,000 unit IVPUSH PRN PRN PRN Reason: Heparin Heparin Sodium (Porcine) (Heparin -) 5,000 unit IVPUSH PRN PRN PRN Reason: Heparin Heparin Sodium (Porcine) 25, (000 unit/ Sodium Chloride) 500 mls @ 20 mls/hr IV TITR [facility]; Protocol Last Admin: 02/11/19 21:00 Dose: Not Given Lisinopril (Prinivil) 5 mg PO DAILY [facility] Last Admin: 02/11/19 09:30 Dose: 5 mg Metoprolol Succinate (Toprol Xl -) 100 mg PO DAILY [facility] Mirtazapine (Remeron -) 7.5 mg PO HS [facility] Last Admin: 02/11/19 21:00 Dose: 7.5 mg Mupirocin (Bactroban Ointment (For Decolonization) -) 1 applic NS BID [facility] Stop: 02/15/19 10:59 Last Admin: 02/11/19 21:01 Dose: 1 applic Nitroglycerin (Nitrostat -) 0.4 mg SL Q5M PRN PRN Reason: FOR CHEST PAIN Last Admin: 02/09/19 21:37 Dose: 0.4 mg Quetiapine Fumarate (Seroquel -) 25 mg PO HS [facility] Last Admin: 02/11/19 21:00 Dose: 25 mg Ticagrelor (Brilinta -) 90 mg PO BID [facility] Last Admin: 02/11/19 21:00 Dose: 90 mg - Objective Vital Signs: Vital Signs Temperature 98.1 F 02/12/19 02:00 Pulse Rate 90 02/12/19 02:00 Respiratory Rate 19 02/12/19 02:00 Blood Pressure 105/46 L 02/12/19 02:00 O2 Sat by Pulse Oximetry (%) 100 02/09/19 16:25 Constitutional: Yes: Calm Eyes: Yes: WNL HENT: Yes: WNL Neck: Yes: WNL Cardiovascular: Yes: WNL Respiratory: Yes: WNL Gastrointestinal: Yes: WNL ...Rectal Exam: Yes: Deferred Genitourinary: No: Anuria Breast(s): Yes: WNL Musculoskeletal: Yes: WNL Extremities: Yes: WNL Edema: No Peripheral Pulses WNL: Yes Integumentary: Yes: WNL Neurological: Yes: WNL ...Motor Strength: WNL Psychiatric: Yes: Alert, Oriented, Other (anxeity/depression) Labs: CBC, BMP 02/11/19 05:22 02/11/19 05:22 INR, PTT INR 1.08 (0.83-1.09) 02/10/19 00:20 Abnormal Lab Results 02/11/19 02/11/19 02/11/19 05:22 05:22 09:35 WBC 11.7 H RBC 3.63 L Hgb 11.6 L Hct 34.6 L PTT (Actin FS) 49.3 H BUN 29.3 H Creatinine 1.4 H Calcium 8.4 L AST 78 H Troponin I Total Protein 6.3 L Albumin 2.9 L 02/11/19 09:35 WBC RBC Hgb Hct PTT (Actin FS) BUN Creatinine Calcium AST Troponin I 7.96 H* Total Protein Albumin - ....Imaging Other: Image Reviewed (telemetry: NSR; occasional ventricular bigeminy, ventricular couplets) Problem List - Problems (1) Hyperlipidemia Assessment/Plan: LDL cholesterol 118 mg/dL (may be falsely low with acute SC). Now on atorvastatin 80 mg daily. Code(s): E78.5 - HYPERLIPIDEMIA, UNSPECIFIED (2) Acute systolic CHF (congestive heart failure) Assessment/Plan: by hx; f/u ECHO. Code(s): I50.21 - ACUTE SYSTOLIC (CONGESTIVE) HEART FAILURE (3) Hypertensive heart disease Assessment/Plan: On metoprolol, amlodipine, lisinopril, furosemide. Code(s): I11.9 - HYPERTENSIVE HEART DISEASE WITHOUT HEART FAILURE Qualifiers: Heart failure presence: without heart failure Qualified Code(s): I11.9 - Hypertensive heart disease without heart failure (4) NSTEMI (non-ST elevated myocardial infarction) Assessment/Plan: On ASA and Brilinta; IV heparin. On atorvastatin 80 mg daily. On metoprolol ER (dose increased due to periods of tachycardia, PSVT, NSTEMI), lisinopril, amlodipine, and furosemide (reduce and or discontinue the latter: rising BUN/Cr, and no signs of acute CHF). Plan for transfer to [facility] 02/12/19 for coronary angiogram. Code(s): I21.4 - NON-ST ELEVATION (NSTEMI) MYOCARDIAL INFARCTION (5) Anemia Code(s): D64.9 - ANEMIA, UNSPECIFIED (6) Dry eyes Assessment/Plan: Now on Artificial Tears. Code(s): H04.123 - DRY EYE SYNDROME OF BILATERAL LACRIMAL GLANDS (7) Insomnia Code(s): G47.00 - INSOMNIA, UNSPECIFIED (8) Depression Assessment/Plan: Pt with hx of severe depression, suicidal attempts. No suicidal ideation presently; slept better after medications (Remeron and Seroquel) reinstituted. He says he has good outside psychological support. Code(s): F32.9 - MAJOR DEPRESSIVE DISORDER, SINGLE EPISODE, UNSPECIFIED (9) Renal insufficiency Assessment/Plan: discontinue furosemide; gentle hydration. Code(s): N28.9 - DISORDER OF KIDNEY AND URETER, UNSPECIFIED
[2019-02-12 05:58] VITALS: BP 126/56; PULSE 98
[2019-02-12 08:11] LABS: BLOOD UREA NITROGEN 33.5 mg/dL (7-18); CALCIUM 8.7 mg/dL (8.5-10.1); CREATININE 1.5 mg/dL (0.55-1.3); MAGNESIUM 2.4 mg/dL (1.8-2.4); PHOSPHOROUS 4.6 mg/dL (2.5-4.9); POTASSIUM 3.9 mmol/L (3.5-5.1)
[2019-02-12 08:21] LABS: HEMOGLOBIN 12.1 GM/dL (11.7-16.9); MCH 32.4 pg (25.7-33.7); MCHC 33.6 g/dl (32.0-35.9); MEAN CELL VOLUME 96.4 fl (80-96); MEAN PLT VOLUME 11.1 fl (7.5-11.1); PLATELET COUNT 292 K/MM3 (134-434); RBC 3.73 M/mm3 (4.00-5.60); RDW 13.1 % (11.9-15.9); WHITE BLOOD COUNT 13.7 K/mm3 (4.0-10.0)
--- NOTE | 2019-02-12 08:45 | DS ---
Physical Examination Vital Signs: Vital Signs Temperature 98.1 F 02/12/19 05:56 Pulse Rate 98 H 02/12/19 05:56 Respiratory Rate 18 02/12/19 05:56 Blood Pressure 126/56 L 02/12/19 05:56 O2 Sat by Pulse Oximetry (%) 100 02/09/19 16:25 Constitutional: Yes: Calm Eyes: Yes: EOM Intact HENT: Yes: Normocephalic Neck: Yes: Trachea Midline Cardiovascular: Yes: Regular Rate and Rhythm, Murmur Respiratory: Yes: CTA Bilaterally Gastrointestinal: Yes: Normal Bowel Sounds, Soft Edema: No Peripheral Pulses WNL: Yes Neurological: Yes: WNL Psychiatric: Yes: WNL Labs: CBC, BMP 02/12/19 06:15 02/12/19 06:15 Discharge Summary Problems reviewed: Yes Reason For Visit: NSTEMI Current Active Problems Acute systolic CHF (congestive heart failure) (Acute) Anemia (Acute) Chest pain (Acute) Depression (Acute) Dry eyes (Acute) Hyperlipidemia (Acute) Hypertensive heart disease (Acute) Insomnia (Acute) NSTEMI (non-ST elevated myocardial infarction) (Acute) Renal insufficiency (Acute) Hospital Course: admitted for NSTEMI, acute CHF with pleural effusion PMH of mod-severe AI, HTN, Depression-s/p 2 suicide attempts in 2014 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 cath currently pain free Condition: Guarded - Instructions Referrals: David Hilliard MD [Primary Care Provider] - Disposition: TRANSFER ACUTE CARE/OTHER HOSP - Home Medications Comprehensive Discharge Medication List: Ambulatory Orders Aspirin [Ecotrin] 81 mg PO DAILY 02/09/16 Mirtazapine [Remeron -] 7.5 mg PO HS 02/09/16 Multivit-Min/FA/Lycopen/Lutein [Centrum Silver Tablet] 1 each PO DAILY 02/09/16 Quetiapine Fumarate [Seroquel -] 25 mg PO HS 02/09/16 Tamsulosin HCl [Flomax] 0.4 mg PO DAILY 02/09/16 Venlafaxine HCl [Effexor -] 75 mg PO DAILY 02/09/16 Amlodipine Besylate 10 mg PO DAILY 02/09/19 Lisinopril 20 mg PO DAILY 02/09/19 Metoprolol Succinate 25 mg PO DAILY 02/09/19
[2019-02-12] MEDS: FUROSEMIDE 40 MG/4 ML INJECTABLE VIAL IVPUSH SCH (09:07)
[2019-02-12] MEDS: amLODIPine BESYLATE 2.5 MG TABLET (FP) PO SCH (09:08)
[2019-02-12] MEDS: ASPIRIN 81 MG CHEWABLE TABLETS PO SCH (09:08)
[2019-02-12] MEDS: LISINOPRIL 5 MG TABLET (FP) PO SCH (09:08)
[2019-02-12] MEDS: TICAGRELOR 90 MG TABLET PO SCH (09:15)
[2019-02-12] MEDS ORDERED: SODIUM CHLORIDE 1,000 ML IV STA (09:42)
--- NOTE | 2019-02-12 10:07 | ECHO ---
Name: FIFI HEAD Exam:Adult Echocardiogram Study Date: 02/12/2019 08:20 AM Age: 73 yrs Reason For Study: [email or web address] Height: 68 in Weight: 170 lb BSA: 1.9 m2 MMode/2D Measurements & Calculations IVSd: 1.2 cm Ao root diam: 3.5 cm LVIDd: 6.5 cm LA dimension: 4.5 cm LVIDs: 5.1 cm LVPWd: 1.0 cm EDV(Teich): 218.1 ml LVOT diam: 2.0 cm ESV(Teich): 125.3 ml LAV (MOD-bp): 107.0 ml Doppler Measurements & Calculations MV E max micky: 96.5 cm/sec Ao V2 max: 172.1 cm/sec MV A max micky: 105.7 cm/sec Ao max P.8 mmHg MV E/A: 0.91 AI P1/2t: 246.4 msec MV dec time: 0.13 sec YONG(V,D): 2.0 cm2 AI max micky: 447.7 cm/sec LV V1 max P.3 mmHg AI max P.3 mmHg LV V1 max: 115.4 cm/sec AI dec slope: 532.2 cm/sec2 MR max micky: 538.5 cm/sec TR max micky: 245.0 cm/sec MR max P.9 mmHg TR max P.0 mmHg PA V2 max: 95.0 cm/sec Med Peak E' Micky: 5.0 cm/sec PA max P.6 mmHg Med E/e': 19.3 Lat Peak E' Micky: 7.4 cm/sec Lat E/e': 13.0 PI Vmax: 241.6 cm/sec Procedure A complete two-dimensional transthoracic echocardiogram was performed (2D, M-mode, Doppler and color flow Doppler). Left Ventricle The left ventricle is moderately dilated. There is mild concentric left ventricular hypertrophy. Left ventricular systolic function is moderately reduced. Ejection Fraction = 35-40%. LV diastology reveal s impaired relaxation with elevated filling pressure (E/E' 19). There is moderate to severe anterior wa ll hypokinesis. There is basal anteroseptal wall moderate hypokinesis. There is mid anteroseptal wall mo derate hypokinesis. There is apical septal wall moderate hypokinesis. There is moderate to severe apical wal l hypokinesis. There are regional wall motion abnormalities as specified. Right Ventricle The right ventricle is normal size. The right ventricular systolic function is normal. Atria The left atrium is moderately dilated. Right atrial size is normal. Mitral Valve There is mild mitral valve thickening. Redundant elongated chordae are noted. There is moderate to se lynda mitral regurgitation. The mitral regurgitant jet is eccentrically directed. Tricuspid Valve The tricuspid valve is normal in structure and function. There is mild tricuspid regurgitation. Pulmo nary artery systolic pressure is at least 28 mmHg if RA pressure is assumed 3 mmHg. Aortic Valve There is mild aortic sclerosis.;. Moderate aortic regurgitation. There is an eccentric jet of aortic insufficiency directed against the septum. Pulmonic Valve The pulmonic valve is not well visualized. Great Vessels The aortic root is normal size. Pericardium/Pleura There is no pericardial effusion. Interpretation Summary The left ventricle is moderately dilated. There is mild concentric left ventricular hypertrophy. Left ventricular systolic function is moderately reduced. There are regional wall motion abnormalities as specified. LV diastology reveals impaired relaxation with elevated filling pressure (E/E' 19) The right ventricular systolic function is normal. The left atrium is moderately dilated. Right atrial size is normal. There is mild mitral valve thickening. Redundant elongated chordae are noted. There is moderate to severe mitral regurgitation. The mitral regurgitant jet is eccentrically directed. There is mild tricuspid regurgitation. Pulmonary artery systolic pressure is at least 28 mmHg if RA pressure is assumed 3 mmHg There is mild aortic sclerosis. Moderate aortic regurgitation. There is an eccentric jet of aortic insufficiency directed against the septum. There is no pericardial effusion. Fernandez Hinojosa MD 02/12/2019 10:06 AM
[2019-02-12] MEDS ORDERED: SODIUM CHLORIDE 1,000 ML IV SCH (10:45)
--- NOTE | 2019-02-12 10:53 | PN ---
Teaching Attending Note Name of Resident: Roshan Wiley ATTENDING PHYSICIAN STATEMENT I saw and evaluated the patient. I reviewed the resident's note and discussed the case with the resident. I agree with the resident's findings and plan as documented. SUBJECTIVE: Patient seen and examined in the ICU. Awake and alert. Had some mid-sternal CP overnight. No SOB. Awaiting transfer to Cardiac Cath. Intake & Output 02/09/19 02/10/19 02/11/19 02/12/19 23:59 23:59 23:59 23:59 Intake Total 640 860 Output Total 3275 059 7741 Balance -1250 -160 -640 Weight 170 lb Last Vital Signs Temp Pulse Resp BP Pulse Ox 98.1 F 98 H 18 126/56 L 100 02/12/19 05:56 02/12/19 05:56 02/12/19 05:56 02/12/19 05:56 02/09/19 16:25 Assessment/Plan ASSESS: -TX -HTN -CHF -Mod-severe AI PLAN: -NPO -Standing FiO2 @ 3LPM -NTP -MSO4 for any break through -ASA -Brilinta -Hepatin gtt -BB -Statin -Trend Trop -Cont home Norvasc -Cont home Lisinopril -Diurese -Decolonize w/ Bactroban -Trend EKG -STAT Transfer to Cardiac Cath -CARDS Consult -SCDs -GI ppx Vital Signs Period Temp Pulse Resp BP Sys/Ricardo Pulse Ox Last 24 Hr 97 F-97.6 F 73-92 16-24 126-145/47-78 Intake & Output 02/08/19 02/09/19 02/10/19 02/11/19 23:59 23:59 23:59 23:59 Intake Total 640 760 Output Total 1250 800 Balance -1250 -160 760 Weight 77.111 kg Exam: awake, alert and cooperative HEENT: PERRL, old trach site, no JVD noted CV: RRR Pulm: CTA Abd: SNTND Ext: WWP, no edema Neuro: intact CBCD WBC 11.7 K/mm3 (4.0-10.0) H 02/11/19 05:22 RBC 3.63 M/mm3 (4.00-5.60) L 02/11/19 05:22 Hgb 11.6 GM/dL (11.7-16.9) L 02/11/19 05:22 Hct 34.6 % (35.4-49) L 02/11/19 05:22 MCV 95.3 fl (80-96) 02/11/19 05:22 MCHC 33.7 g/dl (32.0-35.9) 02/11/19 05:22 RDW 12.9 % (11.9-15.9) 02/11/19 05:22 Plt Count 262 K/MM3 (134-434) 02/11/19 05:22 MPV 10.8 fl (7.5-11.1) 02/11/19 05:22 CMP Sodium 138 mmol/L (136-145) 02/11/19 05:22 Potassium 4.0 mmol/L (3.5-5.1) 02/11/19 05:22 Chloride 103 mmol/L (98-107) 02/11/19 05:22 Carbon Dioxide 25 mmol/L (21-32) 02/11/19 05:22 Anion Gap 10 MMOL/L (8-16) 02/11/19 05:22 BUN 29.3 mg/dL (7-18) H 02/11/19 05:22 Creatinine 1.4 mg/dL (0.55-1.3) H 02/11/19 05:22 Random Glucose 89 mg/dL (74-106) 02/11/19 05:22 Calcium 8.4 mg/dL (8.5-10.1) L 02/11/19 05:22 Total Bilirubin 0.6 mg/dL (0.2-1) 02/11/19 05:22 AST 78 U/L (15-37) H 02/11/19 05:22 ALT 27 U/L (13-61) 02/11/19 05:22 Alkaline Phosphatase 110 U/L (45-117) 02/11/19 05:22 Total Protein 6.3 g/dl (6.4-8.2) L 02/11/19 05:22 Albumin 2.9 g/dl (3.4-5.0) L 02/11/19 05:22 CARDIAC ENZYMES Creatine Kinase 509 U/L (26-308) H 02/10/19 05:49 Troponin I 15.50 ng/ml (0.00-0.05) H* 02/10/19 14:55 ASSESS: -Acute TX -HTN -CHF -Mod-severe AI PLAN: -Cardiac diet -Standing FiO2 @ 3LPM -MSO4 for any break through pain -ASA -Brilinta -Hepatin drip -BB -Statin -Hold MONIKA -Hold Lasix -SCDs -For transfer for Cardiac Catherization Dr Tirado
--- NOTE | 2019-02-12 11:21 | PN ---
Physical Exam: SUBJECTIVE: Patient seen and examined. 73 y/o M with NSTEMI complained of some burning pain (like acid reflux) that occurred during the night no chest pain at the time of evaluation otherwise doing well. denies shortness of breath, headache, chest pain, nausea, vomiting, fevers, chills. OBJECTIVE: Vital Signs Period Temp Pulse Resp BP Sys/Ricardo Pulse Ox Last 24 Hr 97.9 F-98.1 F 70-98 12-20 105-131/44-81 GENERAL: The patient is awake, alert, and fully oriented, in no acute distress. HEAD: Normal with no signs of trauma. EYES: extraocular movements intact, sclera anicteric, conjunctiva clear. No ptosis. ENT: Ears normal, nares patent, oropharynx clear without exudates, moist mucous membranes. NECK: Trachea midline, full range of motion, supple. LUNGS: Breath sounds equal, clear to auscultation bilaterally, no wheezes, no crackles, no accessory muscle use. HEART: Regular rate and rhythm, S1, S2 with systolic murmur. no rub or gallop. ABDOMEN: Soft, nontender, nondistended, normoactive bowel sounds, no guarding, no rebound, no hepatosplenomegaly, no masses. EXTREMITIES: 2+ pulses, warm, well-perfused, no edema. NEUROLOGICAL: Cranial nerves II through XII grossly intact. Normal speech, gait not observed. PSYCH: Normal mood, normal affect.j SKIN: Warm, dry, normal turgor, no rashes or lesions noted Laboratory Results - last 24 hr 02/12/19 02/12/19 02/12/19 06:15 06:15 06:15 WBC 13.7 H RBC 3.73 L Hgb 12.1 Hct 36.0 MCV 96.4 H MCH 32.4 MCHC 33.6 RDW 13.1 Plt Count 292 MPV 11.1 PTT (Actin FS) 60.1 H Sodium 141 Potassium 3.9 Chloride 104 Carbon Dioxide 29 Anion Gap 8 BUN 33.5 H Creatinine 1.5 H Est GFR (CKD-EPI)AfAm 52.03 Est GFR (CKD-EPI)NonAf 44.89 Random Glucose 84 Calcium 8.7 Phosphorus 4.6 Magnesium 2.4 Creatine Kinase 142 Troponin I 8.08 H* ASSESSMENT/PLAN: 73y/o M admitted for NSTEMI Cardiovascular: trop on admission was 14.5today is 7.96. Pt is going to be transferred to [facility] for cardiac cath and higher level of care. -Aspirin, Brilinta, Heparin drip, atorvastatin and metoprolol Renal: Lasix discontinued Visit type - Emergency Visit Emergency Visit: Yes ED Registration Date: 02/09/19 Care time: The patient presented to the Emergency Department on the above date and was hospitalized for further evaluation of their emergent condition. - New Patient This patient is new to me today: Yes Date on this admission: 02/13/19 - Critical Care Critical Care patient: No - Discharge Referral Referred to [facility] No
--- NOTE | 2019-02-12 13:24 | EKG ---
Test Reason : Blood Pressure : / mmHG Vent. Rate : 080 BPM Atrial Rate : 080 BPM P-R Int : 152 ms QRS Dur : 112 ms QT Int : 384 ms P-R-T Axes : 036 -13 -57 degrees QTc Int : 442 ms SINUS RHYTHM WITH PREMATURE SUPRAVENTRICULAR COMPLEXES AND WITH FREQUENT and consecutive PREMATURE VENTRICULAR COMPLEXES SEPTAL INFARCT (CITED ON OR BEFORE 09-FEB-2019) ABNORMAL ECG WHEN COMPARED WITH ECG OF 11-FEB-2019 10:23, LIKELY NO SIGNFICANT CHANGES Confirmed by JUDY SNOW MD ([id number]) on 02/12/2019 1:24:08 PM Referred By: NIURKA ALEXIS Confirmed By:JUDY SNOW MD
--- NOTE | 2019-02-12 14:52 | EKG ---
Test Reason : Blood Pressure : / mmHG Vent. Rate : 083 BPM Atrial Rate : 083 BPM P-R Int : 160 ms QRS Dur : 114 ms QT Int : 388 ms P-R-T Axes : 047 -06 -33 degrees QTc Int : 455 ms SINUS RHYTHM WITH PREMATURE ATRIAL COMPLEXES WITH ABERRANT CONDUCTION POSSIBLE LEFT ATRIAL ENLARGEMENT LEFT VENTRICULAR HYPERTROPHY WITH REPOLARIZATION ABNORMALITY CANNOT RULE OUT SEPTAL INFARCT , AGE UNDETERMINED ABNORMAL ECG WHEN COMPARED WITH ECG OF 10-FEB-2019 09:37, ABERRANT CONDUCTION IS NOW PRESENT Confirmed by JUDY SNOW MD ([id number]) on 02/12/2019 2:52:01 PM Referred By: Christopher MORRISON Confirmed By:JUDY SNOW MD
== END 2019-02-12 10:26 | disposition short-term general hospital (02) | DRG 280 ==
LOC: JER 15:07 → JERBED 18:25 → JICU 22:18
PROVIDERS: ATTEND Internal Medicine
DX: I21.4 Non-ST elevation (NSTEMI) myocardial infarction (principal); I50.21 Acute systolic (congestive) heart failure; I11.0 Hypertensive heart disease with heart failure; F32.9 Major depressive disorder, single episode, unspecified; Z87.891 Personal history of nicotine dependence; F41.9 Anxiety disorder, unspecified; N40.0 Benign prostatic hyperplasia without lower urinary tract symptoms; I25.10 Atherosclerotic heart disease of native coronary artery without angina pectoris; F39 Unspecified mood [affective] disorder; Z91.5 Personal history of self-harm; D64.9 Anemia, unspecified; E78.5 Hyperlipidemia, unspecified; H04.123 Dry eye syndrome of bilateral lacrimal glands; G47.00 Insomnia, unspecified
CPT/HCPCS: 36415; 71045-TC-FY; 76604; 80048; 80053; 80061; 82550; 82553; 83036; 83721; 83735; 83880; 84100; 84443; 84484; 85025; 85027; 85610; 85730; 93005; 93010; 93306-TC; 93308; 99285-25; J1644